=== PATIENT | male | born 1990 | race Caucasian/White ===

== ENCOUNTER 2025-06-03 16:21 | Emergency (ER) | payer MEDICAID ==
[~2025-06-03] VITALS: Ht 172.7 cm; Wt 100.0 kg
[2025-06-03 16:35] VITALS: BP 193/102; PULSE 57; O2SAT 98
--- NOTE | 2025-06-03 17:00 | Physician Documentation ---
History of Present Illness ~ Chief Complaint: Back Pain Stated Complaint: NERVE PAIN Time Seen by MD: 16:38 HPI This is a 34-year-old male who presents with two days of right-sided low lumbar back and posterior hip pain with radiation down right lateral leg, patient reports no recent trauma or fever and no history of IV drug use, cancer, or tuberculosis. Patient reports no new weakness or numbness in extremities, saddle paresthesia, or loss of bowel or bladder control. Patient reports that he was seen at [facility] yesterday and received a CT scan of the area indicating a slipped disc in his L5 patient has follow up with his primary care provider 1st thing tomorrow morning. Medication Reconciliation Allergies: Coded Allergies: No Known Allergies (Unverified , 06/03/25) Scheduled Cyclobenzaprine* (Cyclobenzaprine*), 1 TAB PO TID Ibuprofen (Ibuprofen), 1 TAB PO Q8H Lidocaine (Lidoderm), 1 PATCH TOP DAILY Past Medical History Past Medical History: Chronic Back Pain Review of Systems ROS Right low back pain as stated above in the HPI, otherwise all systems are reviewed and negative. Physical Exam Physical Exam Vital Signs: Temperature: 97.2, Source: Temporal, Heart Rate: 57, Respiratory Rate: 18, BP: 193/102, Pulse Oximetry: 98, Weight: 100.000 Physical Exam VITALS: Reviewed and as above. GENERAL: Alert, nontoxic appearing, no apparent distress. RESPIRATORY: No increased work of breathing, no respiratory distress, speaking in full clear sentences BACK: No central spinal tenderness, no step-offs, no crepitus Progress Results/Orders Results/Orders Completed Orders - INOCENTE DAN [employer] Ketorolac Trometh 15mg/Ml Vial (Toradol (06/03/25 16:40) Cyclobenzaprine Tablet (Flexeril Tablet) (06/03/25 16:40) Lidocaine 5% Patch (Lidoderm 5% Patch) (06/03/25 16:40) Vital Signs 06/03/25 06/03/25 06/03/25 16:35 17:18 17:53 Temp 97.2 97.2 Pulse 57 Resp 18 16 B/P (MAP) 193/102 Pulse Ox 98 Medical Decision Making Findings This is an otherwise healthy, well appearing 34-year-old male with a history of chronic low back pain presenting with exacerbation of low back pain. Patients does not have any high-risk features on history no trauma, IVDA, cancer, sig nificant weight loss or history of TB, and the patient has a normal neurologic exam without fever, severe or progressive neurologic deficits, new or worsening urinary retention, urinary/stool incontinence or decreased perineal sensation; therefore imaging was not indicated in the ED. I doubt spinal fracture, epidural hematoma, epidural abscess, unstable spinal pathology, emergent renal or aortic pathology, or spinal cord compression. Remainder of physical exam benign patient is hemodynamically stable. Upon discharge, the patients pain was controlled, and the patient was ambulatory without a risk of falling. Return precautions were discussed including worsening pain, new/worsening weakness/numbness, difficulty urinating, or incontinence. Home care instruc tions follow up instructions provided to patient patient verbalized understanding of all instructions. Differential Dx:Considerations: Include: Fracture, Musculoskeletal pain, Pyelonephritis, Strain, Urolithiasis, Urinary tract infection, Other (Cauda equina, spinal epidural abscess, radiculopathy) Departure Disposition: 01 HOME / SELF CARE / HOMELESS Impression: Primary Impression: Low back pain Qualified Codes: M54.41 - Lumbago with sciatica, right side Condition: Improved Discharge Instructions: Back Exercises, Acute Back Pain, Adult Additional Instructions: Please use the medications as prescribed, do not combine the Flexeril with narcotic medications or alcohol, and do not drive or operate heavy machinery while taking the Flexeril. Please follow up with your primary care provider in the next few days. Please return to the emergency department for any new or worsening concerning symptoms including but not limited to new weakness or numb ness in your legs, loss of bowel or bladder control, or if you develop a fever or demonstrated tingling in your groin. Take ibuprofen or other NSAIDs for the next 12 hours as you received a shot of Toradol in the emergency department, take ibuprofen with food to avoid stomach upset. Referrals: NO PRIMARY CARE PROVIDER (PCP) Prescriptions Lidocaine (Lidoderm) 5 % Adh..patch 1 PATCH TOP DAILY for 10 Days, #10 PATCH 0 Refills may wear up to 12 hours Prov: INOCENTE DAN 06/03/25 Cyclobenzaprine* (Cyclobenzaprine*) 10 Mg Tablet 1 TAB PO TID, #15 TAB Prov: INOCENTE DAN 06/03/25 Ibuprofen (Ibuprofen) 800 Mg Tablet 1 TAB PO Q8H for pain for 10 Days, #30 TAB 0 Refills Prov: INOCENTE DAN 06/03/25 Education Educated: Patient Educated regarding: diagnosis, treatment, prognosis, need for follow up Signature Scribe Signature: No scribe Attestation: The note accurately reflects work and decisions made by me.SHANIA Waters 06/04/25 02:15 INOCENTE DAN Jun 03, 2025 17:00
[2025-06-03 17:18] VITALS: RESP 16
[2025-06-03] MEDS: ketorolac trometh 15mg/ml vial 15 MG/ML ML IM ONE (17:18)
[2025-06-03] MEDS ORDERED: CYCL-1 PO (17:48)
[2025-06-03] MEDS ORDERED: LIDO-52 TOP (17:48)
[2025-06-03] MEDS ORDERED: IBUP-1986 PO (17:48)
[2025-06-03 17:53] VITALS: TEMP 97.2
== END 2025-06-03 17:56 | disposition home or self-care (01) ==
LOC: ER 16:22
DX: M54.50 Low back pain, unspecified (principal); M79.604 Pain in right leg; Z79.899 Other long term (current) drug therapy
CPT/HCPCS: 96372; 99283; J1885